=== PATIENT | male | born 1955 | race Caucasian/White ===

== ENCOUNTER 2020-06-28 09:27 | Day surgery (SDC) | payer OTHER, SELFPAY ==
[~2020-06-28] VITALS: Ht 167.6 cm; Wt 67.1 kg
[2020-06-28] MEDS ORDERED: LIDOCAINE 1% 500 MG/50 ML VIAL ONE (12:03)
[2020-06-28] MEDS ORDERED: BUPIVACAINE-MPF 0.25% 30 ML VIAL INJ ONE (12:03)
[2020-06-28] MEDS ORDERED: ROCURONIUM 50 MG/5 ML VIAL IV ONE (12:22)
[2020-06-28] MEDS ORDERED: GLYCOPYRROLATE 0.2 MG/ML VIAL ONE (12:22)
[2020-06-28] MEDS ORDERED: fentaNYL citrate 0.05 MG/ML VIAL ONE (12:22)
[2020-06-28] MEDS ORDERED: HYDROmorphone PFS 2 MG/ML SYR ONE (12:22)
[2020-06-28] MEDS ORDERED: ONDANSETRON 4 MG/2 ML VIAL ONE (12:22)
[2020-06-28] MEDS ORDERED: PROPOFOL 200 MG/20 ML VIAL IV ONE (12:22)
[2020-06-28] MEDS ORDERED: NEOSTIGMINE 1:1000 10 MG/10 ML VIAL ONE (12:22)
[2020-06-28] MEDS ORDERED: KETOROLAC 30 MG/ML VIAL ONE (12:22)
[2020-06-28] MEDS ORDERED: DEXAMETHASONE 4 MG/ML VIAL ONE (12:22)
[2020-06-28] MEDS ORDERED: SUCCINYLCHOLINE CHLORIDE 200 MG/10 ML VIAL IVP ONE (12:22)
[2020-06-28] MEDS ORDERED: DESFLURANE 240 ML BTL INH ONE (12:22)
[2020-06-28] MEDS ORDERED: ONDANSETRON 4 MG/2 ML VIAL IV PRN (13:30)
[2020-06-28] MEDS ORDERED: HYDROmorphone 1 MG/ML AMP IVP PRN ×2 (13:30→14:20)
[2020-06-28] MEDS ORDERED: HYDROcodone/APAP 5/325 MG 1 TAB TAB PO PRN (13:30)
[2020-06-28] MEDS ORDERED: MORPHINE SULFATE 4 MG/ML SYR IV PRN (13:30)
[2020-06-28] MEDS ORDERED: MORPHINE SULFATE 2 MG/ML SYR IVP PRN (13:30)
[2020-06-28] MEDS: HYDROmorphone PFS 2 MG/ML SYR ONE ×2 (14:20→14:30)
== END 2020-06-28 16:03 | disposition home or self-care (01) ==
LOC: MDS 09:27 → MMU 09:28 → MDS 16:03
PROVIDERS: ATTEND Surgery
DX: K80.10 Calculus of gallbladder with chronic cholecystitis without obstruction (principal); Z20.828 Contact with and (suspected) exposure to other viral communicable diseases; I10 Essential (primary) hypertension; E03.9 Hypothyroidism, unspecified; K21.9 Gastro-esophageal reflux disease without esophagitis; N40.0 Benign prostatic hyperplasia without lower urinary tract symptoms; M19.90 Unspecified osteoarthritis, unspecified site; Z79.899 Other long term (current) drug therapy
CPT/HCPCS: 36415; 47562; 71045; 86886; 86900; 86901; 93005; J0690; J1170; J2001; J2270; J3490; J7060; J7120; Q0092; U0003; 82374; J0330; J1100; J1885; J2405; J2704; J2710; J3010; J7030